=== PATIENT | male | born 1995 | race African-American/Black ===

== ENCOUNTER 2019-12-19 19:15 | Emergency (ER) | payer OTHER ==
[~2019-12-19] VITALS: Ht 185.4 cm; Wt 75.0 kg
[2019-12-19] MEDS ORDERED: KETOROLAC 30MG/ML VIAL IM ONE (20:15)
[2019-12-19] MEDS ORDERED: BACITRACIN ZINC OINT UDPKT TOP ONE (20:15)
[2019-12-19] MEDS ORDERED: TETANUS, DIPHTHERIA, PERTUSSIS VAC/PF 0.5ML (>7YR OLD) IM ONE (20:15)
[2019-12-19] MEDS ORDERED: HYDROCODONE/ACETAMINOPHEN 5/325MG TABLET PO ONE (20:15)
[2019-12-19 22:24] VITALS: BP 113/77
== END 2019-12-19 22:35 | disposition home or self-care (01) ==
LOC: ER 19:15
DX: S82.61XA Displaced fracture of lateral malleolus of right fibula, initial encounter for closed fracture (principal); V27.0XXA Motorcycle driver injured in collision with fixed or stationary object in nontraffic accident, initial encounter; Y93.55 Activity, bike riding; Y92.89 Other specified places as the place of occurrence of the external cause; Y99.8 Other external cause status
CPT/HCPCS: 29515; 73562; 73610; 73630; 90471; 90715; 96372; 99284; J1885; Z7610